=== PATIENT | female | born 1950 | race Two or more races ===

== ENCOUNTER 2016-12-26 13:31 | Emergency (ER) | payer MEDICAID ==
[~2016-12-26] VITALS: Ht 154.9 cm; Wt 73.0 kg
[2016-12-26] MEDS ORDERED: OXYcodone/APAP 5/325MG TABLET PO ONE (14:30)
[2016-12-26] MEDS ORDERED: OXYcodone/APAP 5/325MG TABLET ONE (14:30)
[2016-12-26] MEDS ORDERED: KETOROLAC 30 MG/1 ML IM ONE (14:30)
[2016-12-26] MEDS ORDERED: KETOROLAC 30 MG/1 ML ONE (14:30)
[2016-12-26 16:05] VITALS: BP 163/94
== END 2016-12-26 16:10 | disposition home or self-care (01) ==
LOC: ED 16:00
DX: S09.90XA Unspecified injury of head, initial encounter (principal); S80.01XA Contusion of right knee, initial encounter; M54.2 Cervicalgia; E11.9 Type 2 diabetes mellitus without complications; E78.00 Pure hypercholesterolemia, unspecified; I10 Essential (primary) hypertension; W01.0XXA Fall on same level from slipping, tripping and stumbling without subsequent striking against object, initial encounter; Y93.89 Activity, other specified; Y92.89 Other specified places as the place of occurrence of the external cause; Y99.8 Other external cause status
CPT/HCPCS: 70450; 72125; 73564; 90472; 99284; J1885